=== PATIENT | female | born 1985 | race Caucasian/White ===

== ENCOUNTER 2020-09-04 17:16 | Emergency (ER) | payer MEDICARE, OTHER ==
[~2020-09-04 17:16] MED LIST: COLACE100 MG PO; FERROUS SULFAT325 MG PO; MOTRIN600 MG PO; PRENATAL FORMU1 EACH PO
[2020-09-04 18:10] LABS: BILIRUBIN 1+ mg/dL (NEGATIVE); BLOOD NEGATIVE Ery/uL (NEGATIVE); CLARITY HAZY (CLEAR); COLOR ORANGE (YELLOW); GLUCOSE (U) TRACE mg/dL (NORMAL); LEUKOCYTES 2+ Leu/uL (NEGATIVE); NITRITE POSITIVE (NEGATIVE); PROTEIN 1+ mg/dL (NEGATIVE); pH 5.5 (5.0-9.0)
[2020-09-04 18:14] LABS: BACTERIA 1+; ECSTASY (MDMA) NEGATIVE (NEGATIVE); MARIJUANA (THC) NEGATIVE (NEGATIVE); METHADONE NEGATIVE (NEGATIVE)
[2020-09-04 18:15] LABS: AMPHETAMINES POSITIVE (NEGATIVE); BARBITURATES NEGATIVE (NEGATIVE); OPIATES POSITIVE (NEGATIVE); OXYCODONE NEGATIVE (NEGATIVE)
[2020-09-04 18:19] LABS: BASOPHIL 0.6 % (0-2); EOSINOPHIL 3.2 % (0-5); HCT 32.7 % (37.0-47.0); HGB 10.4 g/dl (12.5-16.0); LYMPHOCYTE 27.6 % (15-48); MCH 30.4 pg (25.0-31.0); MCHC 31.8 g/dL (32.0-36.0); MCV 95.6 fL (78.0-100.0); MPV 9.3 fL (6.0-9.5); NEUTROPHIL 58.3 % (41-80); NRBC 0; PLT 388 K/uL (150-400); RBC 3.42 M/uL (4.20-5.40); RDW 14.1 % (11.5-14.0); WBC 10.9 K/uL (4.0-10.5)
[2020-09-04 18:37] LABS: ALBUMIN 3.5 g/dL (3.4-5.0); BILIRUBIN - TOTAL 0.2 mg/dL (0.2-1.0); BUN/CREAT RATIO (CALC) 12.4 RATIO; CREATININE 0.97 mg/dL (0.51-0.95); GLOBULIN (CALCULATION) 3.7 g/dL; POTASSIUM 3.5 mmol/L (3.5-5.1); TOTAL PROTEIN 7.2 g/dL (6.4-8.2)
[2020-09-04 18:39] LABS: LACTIC ACID 0.6 mmol/L (0.4-1.9)
[2020-09-04] MEDS ORDERED: BACTRIM DS TAB1 EACH PO (19:07)
[2020-09-08 07:06] LABS: CHLAMYDIA TRACHOMATIS, NAA Positive (Negative); NEISSERIA GONORRHOEAE, NAA Negative (Negative)
== END 2020-09-04 20:55 | disposition home or self-care (01) ==
LOC: FER 17:16
PROVIDERS: Emergency Medicine
DX: N39.0 Urinary tract infection, site not specified (principal); K80.80 Other cholelithiasis without obstruction; E03.9 Hypothyroidism, unspecified; Z85.850 Personal history of malignant neoplasm of thyroid; Z79.899 Other long term (current) drug therapy
CPT/HCPCS: 36415; 80053; 80305; 81001; 83605; 83690; 85025; 87088; 87210; 87491; 87591; J0696; Q9967

== ENCOUNTER 2021-04-17 20:20 | Emergency (ER) | payer OTHER ==
[~2021-04-17 20:20] MED LIST changes: +BACTRIM DS TAB1 EACH PO
[2021-04-17] MEDS ORDERED: SYNTHROID300 MCG PO (21:16)
== END 2021-04-17 21:18 | disposition home or self-care (01) ==
LOC: FER 20:20
DX: R60.0 Localized edema (principal); F17.210 Nicotine dependence, cigarettes, uncomplicated
CPT/HCPCS: 99283